=== PATIENT | male | born 1950 | race Asian ===

== ENCOUNTER 2016-09-12 11:11 | Emergency (ER) | payer OTHER ==
[~2016-09-12] VITALS: Ht 172.7 cm; Wt 63.6 kg
[2016-09-12] MEDS ORDERED: LITH150C PO (11:24)
[2016-09-12] MEDS ORDERED: ASPI-556 PO (11:24)
[2016-09-12 11:53] LABS: APPEARANCE,URINE CLEAR (CLEAR); GLUCOSE, URINE (UA) NEGATIVE (NEGATIVE); KETONES,URINE NEGATIVE (NEGATIVE); LEUKOCYTE ESTERASE ,URINE TRACE (NEGATIVE); OCCULT BLOOD,URINE SMALL (NEGATIVE); PROTEIN,URINE TRACE (NEGATIVE)
[2016-09-12 12:01] LABS: RBC,URINE 0-2 /HPF (0-2); SQUAMOUS EPITHELIAL CELL,UR Few /LPF (None Seen)
[2016-09-12 12:09] LABS: HEMATOCRIT 31.5 % (41-53); HEMOGLOBIN 10.6 g/dL (13.5-17.5); MEAN CORPUSCULAR HEMOGLOBIN 32.8 pg (26.0-34.0); MEAN CORPUSCULAR HGB CONC 33.7 G/dL (31.0-37.0); MEAN CORPUSCULAR VOLUME 97 fL (80-100); PLATELET COUNT (AUTO) 200 K/uL (150-450); RED BLOOD CELL COUNT(AUTO) 3.24 MIL/uL (4.50-5.90); WHITE BLOOD COUNT (AUTO) 16.1 K/uL (4.5-11.0)
[2016-09-12 12:17] LABS: LITHIUM 1.38 mmol/L (0.60-1.20)
[2016-09-12 12:18] LABS: CALCIUM, TOTAL 9.2 mg/dL (8.8-10.5); CREATININE 1.97 mg/dL (0.60-1.30)
[2016-09-12 12:23] LABS: ALBUMIN 3.3 g/dL (3.4-5.0); BILIRUBIN,TOTAL 1.9 mg/dL (0.1-1.0); TOTAL PROTEIN, SERUM 6.7 g/dL (6.4-8.2)
[2016-09-12 12:25] LABS: BAND NEUTROPHILS % (MANUAL) 23 % (1-5); LYMPHOCYTES % (MANUAL) 14 % (22-44); TOTAL CELLS COUNTED 100
[2016-09-12 12:26] LABS: RBC MORPHOLOGY COMMENT NORMAL RBC MORPH
[2016-09-12] MEDS ORDERED: SODIUM CHLORIDE 0.9% 1,000 ML IV ONE ×2 (13:45→14:45)
[2016-09-12] MEDS ORDERED: ONDANSETRON HCL 4 MG/2 ML VIAL IVP ONE (13:45)
[2016-09-12 16:55] VITALS: BP 95/53
[2016-09-12] MEDS ORDERED: METOCLOPRAMIDE HCL 5 MG/ML 2 ML VIAL IVP ONE (17:00)
[2016-09-12] MEDS ORDERED: DiphenhydrAMINE HCL 50 MG/ML VIAL IVP ONE (17:00)
[2016-09-24] MEDS ORDERED: DEXAMETHASONE SOD PHOS 4 MG/ML VIAL IVP ONE (23:47)
[2016-09-24] MEDS ORDERED: NEOSTIGMINE METHYLSULFATE 1 MG/ML 10 ML VIAL IVP ONE (23:47)
[2016-09-24] MEDS ORDERED: LIDOCAINE HCL/PF 2% 5 ML VIAL IM ONE (23:47)
[2016-09-24] MEDS ORDERED: PHENYLEPHRINE HCL 10 MG/ML VIAL IVP ONE (23:47)
[2016-09-24] MEDS ORDERED: FentaNYL CITRATE-PF 250 MCG/5 ML VIAL IVP ONE (23:47)
[2016-09-24] MEDS ORDERED: MIDAZOLAM HCL 2 MG/2 ML VIAL IVP ONE (23:47)
[2016-09-24] MEDS ORDERED: ONDANSETRON HCL 4 MG/2 ML VIAL IVP ONE (23:47)
[2016-09-24] MEDS ORDERED: HYDROmorphone 2 MG/ML SYRINGE IVP ONE (23:47)
[2016-09-24] MEDS ORDERED: ROCURONIUM BROMIDE 10 MG/ML 5 ML VIAL IVP ONE (23:47)
[2016-09-24] MEDS ORDERED: GLYCOPYRROLATE 0.2 MG/ML VIAL IM ONE (23:47)
[2016-09-24] MEDS ORDERED: EPHEDrine SULFATE 50 MG/ML VIAL IM ONE (23:47)
== END 2016-09-12 17:52 | disposition home or self-care (01) ==
LOC: EMS 11:14
DX: K63.5 Polyp of colon (principal); N28.9 Disorder of kidney and ureter, unspecified; E86.0 Dehydration; D72.829 Elevated white blood cell count, unspecified; E78.00 Pure hypercholesterolemia, unspecified; Z79.82 Long term (current) use of aspirin
CPT/HCPCS: 36415; 74176; 80053; 80178; 81001; 83690; 84484; 85025; 93005; 96374; 96375; 99285; J1200; J2405; J2765; J7030

== ENCOUNTER 2019-07-04 16:31 | Emergency (ER) | payer MEDICARE, OTHER ==
[~2019-07-04] VITALS: Ht 172.7 cm; Wt 65.0 kg
[~2019-07-04 16:31] MED LIST: ASPI-556 PO; LITH150C PO
[2019-07-04] MEDS ORDERED: MIRT-89 PO (16:35)
[2019-07-04] MEDS ORDERED: FLUT16H NASAL (16:35)
[2019-07-04] MEDS ORDERED: AMLO5TAB9 PO (16:35)
[2019-07-04] MEDS ORDERED: LEVO75 PO (16:35)
[2019-07-04] MEDS ORDERED: CYAN100056 IM (16:35)
[2019-07-04 17:28] LABS: BASOPHILS % (AUTO) 1.4 % (0.0-2.0); EOSINOPHILS % (AUTO) 6.4 % (1.0-6.0); HEMATOCRIT 28.9 % (41-53); HEMOGLOBIN 9.5 g/dL (13.5-17.5); LYMPHOCYTES # (AUTO) 1.2 K/uL (1.0-4.8); LYMPHOCYTES % (AUTO) 30.5 % (22.0-44.0); MEAN CORPUSCULAR HGB CONC 32.9 G/dL (31.0-37.0); MEAN CORPUSCULAR VOLUME 100 fL (80-100); MONOCYTES # (AUTO) 0.5 K/uL (0.1-1.0); MONOCYTES % (AUTO) 12.6 % (2.0-9.0); NEUTROPHILS % (AUTO) 49.1 % (40.0-70.0); PLATELET COUNT (AUTO) 131 K/uL (150-450); RED BLOOD CELL COUNT(AUTO) 2.88 MIL/uL (4.50-5.90); RED CELL DISTRIBUTION WIDTH 15.6 % (11.5-14.5)
[2019-07-04 17:55] LABS: CALCIUM, TOTAL 8.2 mg/dL (8.8-10.5); CREATININE 1.43 mg/dL (0.60-1.30); POTASSIUM 3.8 mmol/L (3.5-5.1)
[2019-07-04 17:58] LABS: ALBUMIN 3.6 g/dL (3.4-5.0); BILIRUBIN,TOTAL 0.9 mg/dL (0.1-1.0); TOTAL PROTEIN, SERUM 5.9 g/dL (6.4-8.2)
[2019-07-04 18:45] VITALS: BP 108/68
[2019-07-04 19:12] LABS: APPEARANCE,URINE CLEAR (CLEAR); BILIRUBIN,URINE NEGATIVE (NEGATIVE); GLUCOSE, URINE (UA) NEGATIVE (NEGATIVE); KETONES,URINE NEGATIVE (NEGATIVE); LEUKOCYTE ESTERASE ,URINE NEGATIVE (NEGATIVE); NITRATE,URINE NEGATIVE (NEGATIVE); OCCULT BLOOD,URINE NEGATIVE (NEGATIVE); PROTEIN,URINE NEGATIVE (NEGATIVE); UROBILINOGEN,URINE 0.2 mg/dL (<=1.0)
[2019-07-04 19:23] LABS: RBC,URINE None Seen /HPF (0-2); WBC,URINE None Seen /HPF (0-5)
[2019-07-04 19:24] LABS: BACTERIA,URINE None Seen /HPF (None Seen); SQUAMOUS EPITHELIAL CELL,UR None Seen /LPF (None Seen)
== END 2019-07-04 18:45 | disposition home or self-care (01) ==
LOC: EMS 16:41
DX: L03.116 Cellulitis of left lower limb (principal); L03.115 Cellulitis of right lower limb; D64.9 Anemia, unspecified; D72.819 Decreased white blood cell count, unspecified; Z79.82 Long term (current) use of aspirin; Z79.899 Other long term (current) drug therapy
CPT/HCPCS: 93970

== ENCOUNTER 2023-03-16 10:56 | Emergency (ER) | payer MEDICARE, OTHER ==
[~2023-03-16] VITALS: Ht 172.7 cm; Wt 46.0 kg
[~2023-03-16 10:56] MED LIST changes: +AMLO-257 PO; +CYAN-42 IM; +FLUT16SP NASAL; +LEVO75 PO; +MIRT-89 PO
[2023-03-16 10:58] VITALS: TEMP 98.9
[2023-03-16] MEDS ORDERED: ATOR20TA PO (10:59)
[2023-03-16 13:14] LABS: BASOPHILS % (AUTO) 0.8 % (0.0-2.0); EOSINOPHILS % (AUTO) 2.6 % (1.0-6.0); HEMATOCRIT 30.4 % (41-53); HEMOGLOBIN 10.4 g/dL (13.5-17.5); LYMPHOCYTES # (AUTO) 0.6 K/uL (1.0-4.8); LYMPHOCYTES % (AUTO) 9.9 % (22.0-44.0); MEAN CORPUSCULAR HGB CONC 34.2 G/dL (31.0-37.0); MEAN CORPUSCULAR VOLUME 105 fL (80-100); MONOCYTES # (AUTO) 0.7 K/uL (0.1-1.0); MONOCYTES % (AUTO) 10.7 % (2.0-9.0); NEUTROPHILS # (AUTO) 4.8 K/uL (1.8-7.7); RED BLOOD CELL COUNT(AUTO) 2.89 MIL/uL (4.50-5.90); RED CELL DISTRIBUTION WIDTH 14.8 % (11.5-14.5); WHITE BLOOD COUNT (AUTO) 6.4 K/uL (4.5-11.0)
[2023-03-16 13:27] LABS: CALCIUM, TOTAL 8.3 mg/dL (8.8-10.5); CREATININE 1.45 mg/dL (0.60-1.30); POTASSIUM 3.7 mmol/L (3.5-5.1)
[2023-03-16 13:33] LABS: TROPONIN I-HIGH SENSITIVITY 17 ng/L (<76)
[2023-03-16 13:55] LABS: BILIRUBIN,TOTAL 0.5 mg/dL (0.1-1.0); TOTAL PROTEIN, SERUM 6.1 g/dL (6.4-8.2)
[2023-03-16 14:06] LABS: PLATELET COUNT (AUTO) 57 K/uL (150-450)
[2023-03-16 14:23] VITALS: BP 128/71; PULSE 80; RESP 16
== END 2023-03-16 14:38 | disposition home or self-care (01) ==
LOC: EMS 11:17
DX: R60.0 Localized edema (principal); F31.9 Bipolar disorder, unspecified; E78.00 Pure hypercholesterolemia, unspecified
CPT/HCPCS: 80053; 82550; 83880; 84484; 85025; 93005; 93970; 99284